=== PATIENT | male | born 1975 | race Caucasian/White ===

== ENCOUNTER 2019-06-28 03:14 | Inpatient (IN) | payer OTHER, SELFPAY ==
[2019-06-28 03:17] VITALS: BP 127/104; PULSE 123; RESP 18; TEMP 36.6; O2SAT 96; BMI 42.8
--- NOTE | 2019-06-28 03:23 | ED_ITS ---
Entered by Kala Wilson, acting as scribe for Calli Perez HPI - Anxiety General: Chief Complaint: Anxiety Stated Complaint: ams Time Seen by Provider: 06/28/19 03:17 Source: patient Mode of arrival: ambulatory History of Present Illness: HPI narrative: 44 y/o male presents to the ED with complaint of anxiety and ETOH intoxication. Pt states he is here because he does not want to harm anyone. Pt walked quite a distance to get here in an attempt to seek help and refuge . He states he feels very betrayed and has some uneasy thoughts about being around other people. Pt is a war and has some PTSD. Pt is very careful to not explicitly use the terms, suicidal or homicidal upon exam because he does not want to lose the ability to make his own decisions. He is interested in possibly going to the [facility] on a voluntary basis. MD complaint: anxiety and other (ETOH) Severity: moderate History of similar episodes: Yes Provoking factors: emotional stress and other (ETOH) Relieving factors: nothing Associated symptoms: Deny chest pain, chills, confusion, diaphoresis, fever(s), headache(s), malaise, nausea, palpitations, syncope or vomiting Review of Systems General: Reports: other (negative unless marked) Const: Denies: fever, chills, body aches, fatigue, malaise or diaphoresis Eyes: Denies: change in vision or blurry vision ENMT: Denies: throat pain, painful swallowing, hoarseness, ear pain, ear discharge, Change in hearing or nasal discharge Card: Denies: chest pain, palpitations, irregular heart rhythm, syncope, pre- syncope, shortness of breath on exertion or shortness of breath when lying down Resp: Denies: shortness of breath, productive cough, non-productive cough, wheezing, coughing up blood or chest congestion GI: Denies: abdominal pain, nausea, vomiting, vomiting blood, coffee grounds in vomit, diarrhea, constipation, cramping, blood in stool or black tarry stool : Denies: flank pain, difficulty urinating, painful urination, urinary frequency, urinary urgency, decreased urine ouput, urinary incontinence or blood in urine Musc: Denies: neck pain, back pain, extremity pain, extremity swelling, joint pain, joint swelling, joint warmth or joint stiffness Skin/Breast: Denies: rash, skin tenderness or yellow skin Neuro: Denies: headache, numbness in extremities, weakness in extremities, changes in sensation, lack of coordination, difficulty walking, dizziness, vertigo or confusion Endo: Denies: excessive thirst, tired all the time, cold intolerance, excessive sweating, flushing or hot flashes Keo/Lymph: Denies: easy bruising, easy bleeding, petechiae or enlarged lymph nodes All/Imm: Denies: hives, throat swelling, tongue swelling, facial swelling or acute wheezing PFSH ED PFSH: Social History Smoking and tobacco status: never smoked Physical Exam Const: ORIENTATION/CONSCIOUSNESS: Yes awake HENMT: COMMON NORMALS: normocephalic, head/scalp atraumatic, hearing grossly normal bilaterally, external ears normal, EAC's normal, external nose normal and moist oral mucous membranes HEAD & SCALP: normal to inspection, normocephalic and atraumatic FACE & SINUS: normal facial exam and face symmetric NOSE: external nose normal and nares normal EXTERNAL EAR: Yes external ears normal EXTERNAL AUDITORY CANAL: EAC's normal MOUTH: oral and palatal mucosa normal and tongue normal Eye: COMMON NORMALS: PERRL, EOMs intact bilaterally, conjunctivae normal and no scleral icterus GENERAL EYE: normal appearance of both eyes and normal light reflex CONJUNCTIVA: Yes conjunctivae normal SCLERA: sclerae normal CORNEA: Yes corneas normal PUPIL: Yes PERRL DIRECT OPHTHALMOSCOPY: Yes normal light reflex Neck/C-Spine: COMMON NORMALS: full ROM, no lymphadenopathy, supple, no menin geal signs and no JVD GENERAL: Yes normal visual inspection and Yes trachea midline CERVICAL SPINE: Yes cervical ROM normal Chest: COMMONS NORMALS: inspection of chest normal and palpation of chest normal Resp: COMMON NORMALS: normal respiratory effort, no retractions, no use of accessory muscles and clear to auscultation bilaterally EFFORT & INSPECTION: Yes able to speak in complete sentences AUSCULTATION: clear to auscultation bilaterally Cardio: COMMON NORMALS: no JVD, regular rate, regular rhythm, S1 normal heart sound, S2 normal heart sound, no gallops, no clicks, no murmurs and no rub JUGULAR VENOUS DISTENTION: no JVD RATE: regular rate RHYTHM: regular rhythm HEART SOUNDS: S1 normal and S2 normal GI: COMMON NORMALS: soft to palpation, non-tender, no hepatosplenomegaly and no masses INSPECTION: Yes normal to inspection PALPATION: Yes soft and Yes no hepatosplenomegaly : COMMON NORMALS: Yes no CVA tenderness BLADDER/KIDNEY EXAM: Yes no CVA tenderness Back/Pelvis: COMMON NORMALS: no CVA tenderness, thoracic and lumbar spine normal to inspection, no thoracic nor lumbar tenderness and thoraco-lumbar ROM normal Extremity: COMMON NORMALS: normal to inspection, full ROM, normal capillary refill, no joint enlargement, no clubbing, cyanosis or edema and no calf tenderness Neuro: COMMON NORMALS: CN's II-XII intact bilaterally, moves all extremities, no focal motor deficits and no sensory deficits noted MENINGEAL SIGNS: Yes no meningeal signs Psych: COMMON NORMALS: activity/motor behavior normal Skin: COMMON NORMALS: no rashes or lesions noted, skin turgor normal, no jaundice, no petechiae and no mottling GENERAL SKIN EXAM: no rashes or lesions noted and turgor normal Course Vital Signs: Vital signs: Vital Signs Temperature 97.9 F 06/28/19 03:17 Pulse Rate 115 H 06/28/19 04:53 Respiratory Rate 18 06/28/19 04:53 Blood Pressure 121/89 06/28/19 04:53 Pulse Oximetry 95 06/28/19 04:53 MDM - Anxiety MDM Narrative: Medical decision making narrative: Case reviewed with Dr. Wallace, he agrees accept the patient to the [facility]. The patient is received Zyprexa and Ativan with only minimal improvement but it is improvement. The patient is clinically stable with no sign of intoxication. He will go ahead and admit him to the [facility]. EKG Data^: EKG 1: Attestation: I personally reviewed and interpreted this EKG as follows: EKG interpretation date: 06/28/19 EKG interpretation time: 05:12 Interpretation: Sinus tachycardia 110 beats a minute, no acute ST or T wave changes. Lab Data: Labs: Lab Results 06/28/19 06/28/19 06/28/19 Range/Units 04:36 04:36 04:36 WBC 10.7 H (4.0-10.0) 10^3/ uL RBC 4.85 (4.1-5.3) 10^6/u L Hgb 14.8 (11.7-16.6) g/dL Hct 45.1 (42.0-52.0) % MCV 93.0 (80-94) fL MCH 30.5 (28.0-34.0) pg MCHC 32.8 (30.0-36.0) g/dL RDW 13.2 (12.1-15.1) % Plt Count 373 (130-400) 10^3/c mm MPV 8.9 (7.4-10.4) fL Neut % (Auto) 58.9 % Lymph % (Auto) 28.3 % Taliaferro % (Auto) 9.3 % Eos % (Auto) 2.3 % Baso % (Auto) 0.7 % Neut # (Auto) 6.3 (1.8-7.7) 10^3/u L Lymph # (Auto) 3.0 (0.8-4.8) 10^3/u L Taliaferro # (Auto) 1.0 H (0.2-0.9) 10^3/u L Eos # (Auto) 0.3 (0.0-0.8) 10^3/u L Baso # (Auto) 0.1 (0.0-0.1) 10^3/u L Nucleated RBC % (a uto) 0 % Nucleated RBCs # 0.0 /100WBC Sodium 138 (136-145) mmol/L Potassium 3.8 (3.5-5.1) mmol/L Chloride 100 (98-107) mmol/L Carbon Dioxide 21 L (22-29) mmol/L Anion Gap 20.8 H (5-19) BUN 20 (6-20) mg/dL Creatinine 1.2 (0.7-1.2) mg/dL GFR Calculation 66.1 L (90-130) mL/min Glucose 115 (65-115) mg/dL Calcium 9.5 (8.5-10.5) mg/dL Total Bilirubin 0.2 (0.15-1.2) mg/dL AST 33 (0-40) U/L ALT 38 (0-41) U/L Alkaline Phosphata se 91 (40-130) IU/L Total Protein 8.3 (6.6-8.7) g/dL Albumin 3.9 (3.5-5.2) g/dL Globulin 4.4 (1.3-4.6) g/dL TSH 4.03 (0.27-4.20) uIU/ mL Salicylates < 0.3 L (3-10) mg/dL Acetaminophen < 5.0 L (10-30) ug/mL Phenytoin 1.2 L (10-20) ug/mL Valproic Acid < 2.8 L (50-100) mcg/mL Carbamazepine < 2.0 L (4.0-12.0) ug/mL Realitos < 0.1 L (0.6-1.2) mmol/L Ethyl Alcohol 221 H (0-10) mg/dL Discharge Plan Discharge Patient Disposition: Admitted As Inpatient Admit Provider: Pramod Wallace Clinical Impression: Suicidal ideations, Homicidal ideations Condition: Stable Referrals: Cristiana Banks FNP [Family Provider] - Coding Level of Care Code ED Machine Coremaker for Chg Fwd Exam Comprehensive The documentation recorded by the Steve reeves Ashley, accurately reflects the service I personally performed and the decisions made by Chris squires Eli N Jun 28, 2019 03:14
--- NOTE | 2019-06-28 04:01 | PC.NURSE ---
Patient arrived to emergency department for vague complaints of SI/HI. Patient was brought back to room 8 patient made multiple vague statements concerning his safety. When asked about harming himself or others patient made air quotes stating No , and stated Honestly, if I was I would not tell you . RN documented triage suicide scale as not a harm to self due to patient not specifically stating yes or No . When Dr. Perez, entered the room to speak with the patient, he became agitated, and began sweating. Patient voiced If you have more important things to do, go do them, I'm fine . Provider explained that he was here to see him and listen to his needs. Provider explained to patient about voluntary and involuntary. Patient explained to provider, that once he states he is a harm to himself, he loses all his rights and voiced with air quotes No, I'm not homicidal or suicidal , but again voiced he would not tell nursing staff. Provider moved towards patient to assess his heart and lungs, patient became very fidgety, sweating profusely, stating I have personal space issues . RN stayed in room after provider left and spoke with patient, patient began crying voicing he was a burden on his family, and that he thought they were tired of dealing with him and his issues. Patient asked nurse what time it was, nurse answered. He became more upset stating they don't care about me, no one has called . RN explained to patient that maybe they were sleeping and did not know he was gone. Patient asked for something to help his anxiety and then he would decide if he was going to stay or go home. RN pulled mediation and was headed back to the patient's room. Patient met RN in the hallway, with his jacket on and the reeves over his eyes. He stated If you guys are busy, take care of the other patient's, I'm going to go. RN explained that he was just as important as the other patient's in the EAR and that he was not being a bother to any of the nursing staff. Patient relaxed and headed back into the room. He sat down on the bed, and asked what medication I had for him. RN explained that provider had ordered a medication called Zyprexa IM and that medication would help calm him down. Patient voiced If I take this medication, do I have to stay here for a long time afterwards, or can I just get the medication and go home . RN explained that patient would need to stay in the ER for four hours after medication to monitor for side effects and how patient tolerates medication. Patient voiced Then I do not want the medication . Another nurse over heard discussion and brought in a AMA form. Patient signed the AMA form, upon signing the paper, he stated If I sign this does this protect the hospital from getting inarguable for me leaving. Patient then stated I have lots of opportunities on the way home. After patient left ER, and provider was notified. Raudel DENNIS notified and RN explained the situtation to PD and potential risk of harming himself or others. Upon leaving facility he explained there are multiple opportunities to harm myself on the way. RN notified provider concerning patient elopement, Provider instructed RN to call Raudel still PD.
--- NOTE | 2019-06-28 04:08 | PC.NURSE ---
Patient was being triage by CARI Reese the patient continued to make vague complaints of SI/HI. Patient reports that he is not SI/HI but then states that he has feelings of hurting others and his self but does not want to. Patient asked during triage for something to help calm him down. This RN went to get the physician to ask for medication for the patient. This RN got verbal orders from the physician. After getting the medication the patient decided he did not want the medication. Patient then decides he wants to leave. Patient signed the AMA paperwork then stated does this protect you guys if I was to do something on my way home? Patient then walks out and reports there is a lot of opportunity on the way.
[2019-06-28] MEDS: OLANZapine 10 mg VIAL 5 MG IM (04:41)
[2019-06-28] MEDS: LORazepam 2 mg/mL INJ 1 mL (04:42)
[2019-06-28 04:44] LABS: Basophils # 0.1 10^3/uL (0.0-0.1); Basophils % 0.7 %; Eosinophils # 0.3 10^3/uL (0.0-0.8); Eosinophils % 2.3 %; Hematocrit 45.1 % (42.0-52.0); Hemoglobin 14.8 g/dL (11.7-16.6); Lymphocytes % 28.3 %; Mean Corpuscular HGB Conc 32.8 g/dL (30.0-36.0); Mean Corpuscular Hemoglobin 30.5 pg (28.0-34.0); Mean Platelet Volume 8.9 fL (7.4-10.4); Monocytes % 9.3 %; Neutrophils # 6.3 10^3/uL (1.8-7.7); Neutrophils % 58.9 %; Nucleated Red Blood Cells % 0 %; Platelet Count 373 10^3/cmm (130-400); Red Blood Count 4.85 10^6/uL (4.1-5.3); Red Cell Distribution Width 13.2 % (12.1-15.1); White Blood Count 10.7 10^3/uL (4.0-10.0)
[2019-06-28 04:53] VITALS: BP 121/89; PULSE 115; RESP 18; O2SAT 95
[2019-06-28 05:05] LABS: Lithium < 0.1 mmol/L (0.6-1.2); Phenytoin Dilantin 1.2 ug/mL (10-20); Valproic Acid Level < 2.8 mcg/mL (50-100)
[2019-06-28 05:06] LABS: Carbamazepine Tegretol < 2.0 ug/mL (4.0-12.0)
[2019-06-28 05:14] LABS: Alanine Aminotransferase 38 U/L (0-41); Albumin Level 3.9 g/dL (3.5-5.2); Alcohol Level 221 mg/dL (0-10); Alkaline Phosphatase 91 IU/L (40-130); Anion Gap 20.8 (5-19); Aspartate Amino Transferase 33 U/L (0-40); Blood Urea Nitrogen 20 mg/dL (6-20); Calcium 9.5 mg/dL (8.5-10.5); Carbon Dioxide 21 mmol/L (22-29); Chloride 100 mmol/L (98-107); Globulin 4.4 g/dL (1.3-4.6); Glomerular Filtration Rate 66.1 mL/min (90-130); Glucose 115 mg/dL (65-115); Potassium 3.8 mmol/L (3.5-5.1); Sodium 138 mmol/L (136-145); Thyroid Stimulating Hormone 4.03 uIU/mL (0.27-4.20); Total Bilirubin 0.2 mg/dL (0.15-1.2); Total Protein 8.3 g/dL (6.6-8.7)
[2019-06-28 05:15] LABS: Acetaminophen < 5.0 ug/mL (10-30); Salicylate < 0.3 mg/dL (3-10)
--- NOTE | 2019-06-28 05:20 | PC.NURSE ---
Introduced self to patient and initiated vital signs. Patient presents A&O x 4. NAD, ABCs intact, MAEW and agreeable to treatment. Respirations are even and unlabored. Pt denies any vision disturbances or lightheadedness. Bed left in lowest position in semi-fowlers with side rails up.Reassured patient of needs and will continue to monitor.
[2019-06-28 05:28] LABS: Amphetamines Screen Urine Negative (Negative); Barbiturates Screen Urine Negative (Negative); Benzodiazepines Screen Urine Negative (Negative); Cocaine Screen Urine Negative (Negative); Opiate Screen Urine Negative (Negative); PCP Screen Urine Negative (Negative); THC Screen Urine Negative (Negative)
--- NOTE | 2019-06-28 05:35 | PC.NURSE ---
Pt changed into gown (front and back) due to ER not having large enough blue scrubs.
[2019-06-28 05:38] LABS: Urine Appearance Clear (CLEAR); Urine Color Yellow (Yellow)
[2019-06-28 05:39] LABS: Add Urine Microscopic? YES; Bilirubin Urine Neg (NEGATIVE); Blood Urine 3+ (Negative); Glucose Urine UA Norm (Normal); Ketones Urine Negative (Negative); Leukocyte Esterase Urine Negative (Negative); Nitrate Urine Negative (Negative); Protein Urine Neg (Negative); Urobilinogen Urine Norm (Negative); pH Urine 5 (5-7)
[2019-06-28 05:40] LABS: RBC Urine 15-25 /hpf (0-2); Squamous Epithelial Cell Urine 0-4 (0-5); WBC Urine 0-4 /hpf (0-5)
[2019-06-28 05:41] LABS: Add Urine Culture? Yes; Bacteria Urine TRACE; Hyaline Casts Urine 0-4; Mucus Urine TRACE
[2019-06-28 06:00] VITALS: BP 91/42; PULSE 109; RESP 17; TEMP 36.6; O2SAT 94
--- NOTE | 2019-06-28 08:23 | P.HP_ITS ---
Providers/Chief Complaint Admitting Physician: Pramod Wallace MD Chief Complaint: ams HPI [facility] History of Present Illness Chief complaint: I got my feelings hurt. I don't really know why I came here. I don't how this is Supposed to help me. History of present illness:Roderick Costello is a 44 year old male Who does not feel that he has a mental health problem. He presented to the emergency room after an episode at home that his feelings hurt. He did not know where to go. He came to the hospital. He made some vague suicidal statements. He is somewhat offended that they took him seriously and that he is now in a psychiatric unit. He is irritated that they gave him medication and now tired. He needs to be here. He does not feel he needs to have psychiatric care. Roderick is suffering from multiple different mental health issues. To begin with, he reports that he is drinking 2 gallons of vodka per week.He is prescribed [facility]ote at the [facility] for his tendency to be explosive and angry. However he does not take the Depakote because of the fear he has that the Depakote will harm his liver in combination with alcohol. He sees that the alcohol drinking as a problem but not to the extent that he would be willing to participate in a sobriety program. He cannot remember when he was last sober for more than a week.He presented to the emergency room with a blood alcohol level =221. He is not reporting any signs or symptoms of alcohol withdrawal today.He denies a history of seizures, DTs, or alcohol withdrawal. He denies that he is depressed. He enjoys playing with his grandchildren. However he also reports that he is persistently dysphoric area he has difficulty sleeping though he does sleep with a CPAP. He is drinking 2 gallons of vodka per week. He denies suicidal or homicidal ideation but he definitely did make multiple statements according affidavits in that direction last night. He is sad over the state of his marital relationship. He is sad for a great number of reasons. He feels hopeless and overwhelmed and does not feel that he can make any significant changes in his life. But again, he states that he is not depressed. He denies the presence of auditory or visual hallucinations. He is given Depakote by the [facility] for tendency to be explosive. He has never had a seizure. Then again, he doesn't take that medication. Laboratory Tests 06/28/19 06/28/19 04:36 04:36 Urine Opiates Screen Negative Ur Barbiturates Screen Negative Ur Phencyclidine Scrn Negative Ur Amphetamines Screen Negative U Benzodiazepines Scrn Negative Urine Cocaine Screen Negative U Marijuana (THC) Screen Negative Ethyl Alcohol 221 H ER physician note: HPI narrative: 44 y/o male presents to the ED with complaint of anxiety and ETOH intoxication. Pt states he is here because he does not want to harm anyone. Pt walked quite a distance to get here in an attempt to seek help and refuge . He states he feels very betrayed and has some uneasy thoughts about being around other people. Pt is a war and has some PTSD. Pt is very careful to not explicitly use the terms, suicidal or homicidal upon exam be cause he does not want to lose the ability to make his own decisions. He is interested in possibly going to the [facility] on a voluntary basis. Mental health history: He denies any history of mental health treatment. He denies any history of being admitted to the psychiatric unit. However he did present to the emergency room and an almost identical circumstances in 2017. He describes that as a Fugue state episode. Social history:Patient probably states that he is a of the [place] war. He has been for 34 years. He lives in a home with his 23-year-old son and 3 grandchildren he and his are charged with being the primary caretakers of the grandchildren. All the relationship with her son is good, though lack of personal time and time to spend together is a significant problem. He spends his time watching TV, taking care of the children, and playing [employer]. He says that these are enjoyable but does so without enthusiasm. Legal history:There is no history of felony arrests or convictions in the [place] public record. Past medical history: Mental Status Exam: The patient is a large obese man appearing much older than his stated age. He has a long blond braided croft that is well tended. Eye contact is fleeting. He is believed to be a reliable source of information as assessed by the internal consistency of his information and its consistency with that in the chart. Appearance: hygiene is fair; no gross neurological deficits., gait is u nremarkable; AIMS=0 Speech: Speech is of normal rate and rhythm and easily understood. Thought processes: Thought processes are abstract. Judgment is adequate for safety. Associations: intact Psychotic processes: There is no indication of guarding or paranoia. There is no attention to the internal stimuli. Auditory and visual hallucinations are denied. Judgment: Insight is fair. Problem solving skills are adequate for safety. Orientation: The patient is oriented to person, place time and situation. Memory: no deficits noted in immediate, intermediate, or remote spheres. Attention: The patient is alert and interpersonally engaged. Language: Verbalizations are coherent. Fund of knowledge: Fund of knowledge is adequate. Affect/Mood: Affect is consistent with a depressed mood. He denied suicidal ideation Affective range Constricted Psychosis: perception unimpaired except through cognitive distortion; reality testing intact. Diagnoses: Major depression?single episode, severe, without psychotic features Alcohol abuse disorder Alcohol inebriation?resolved Assessment: The patient is admitted to the psychiatric unit under a 96 hour involuntary commitment. At this point, he does not appear to be in imminent risk to self or others but will continue observation. He does appear to be afflicted with clinical depression and severe alcohol abuse. We discussed multiple possible interventions that could be initiated and follow through on discharge. However he Is reluctant to engage in any of those. Treatment plan: Due to the psychiatric conditions and treatment listed in the Assessment and Plan - the patient requires continued hospitalization. Will provide a safe and therapeutic environment for patient.. Will continue inpatient treatment to allow for medication adjustment and monitoring. Will continue q15 min safety checks. The patient is admitted to the psychiatric unit under a 96 hour involuntary commitment. At this point, he does not appear to be in imminent risk to self or others but will continue observation. He does appear to be afflicted with cl inical depression and severe alcohol abuse. We discussed multiple possible interventions that could be initiated and follow through on discharge. However he Is reluctant to engage in any of those.PLAN: Will not restart Depakote as he is not going to take it anyway. Will replace lisinopril with atenolol 25 mg daily that may assist with explosive outbursts and hypertension. Will continue current medications and monitor for medication side effects. Monitor patient's mood, sleep, appetite, and behavior closely. Encourage patient to participate in individual and group therapeutic sessions on the smith. Estimated length of stay 5 days The expected benefits and potential side effects of patient's psychiatric medications were discussed with the patient. The patient understands and consents to treatment.CRITERIA FOR DISCHARGE: stable on medications and no longer an im Meds NPU Home Medications Medication Instructions Recorded Confirmed Type divalproex [Depakote] 250 mg PO BID 06/28/19 06/28/19 History lisinopril 10 mg PO DAILY 06/28/19 06/28/19 History Allergies Allergy/AdvReac Type Severity Reaction Status Date / Time haloperidol [From Haldol] Allergy Intermediate ADR-Seizure Verified 06/28/19 03:25 antibotics Allergy Intermediate ALGY-Hives Uncoded 06/28/19 03:25 PFSH N[facility] PFSH: Social History Smoking and tobacco status: never smoked Vitals/I&O/Wt Last Vital Signs Temp 97.9 F 06/28/19 06:00 Pulse 109 H 06/28/19 06:00 Resp 17 06/28/19 06:00 BP 91/42 06/28/19 06:00 Pulse Ox 94 06/28/19 06:00 Weight last 48 hrs Weight 147.418 kg Data N[facility] : 06/28/19 04:36 06/28/19 04:36 Involuntary Hold Information 96 Hour Hold: 96 Hour Involuntary Admission: Yes 96 Hour Hold Ending Date: 07/03/19 96 Hour Hold Ending Time: 00:00 Attestations [facility] Medical Necessity Statement*: Patient will remain in the hospital 24 hours while we assess his imminent risk to self or others. Coding Level of Care Code Acute Electric Organ Checker for Tevin Roberts
[2019-06-28] MEDS: atenolol 50 mg Tablet 25 MG PO (10:12)
--- NOTE | 2019-06-28 13:56 | PC.NURSE ---
CONTACT INFO CAN BE REACHED AT [phone]
[2019-06-28 13:59] VITALS: BP 109/84; PULSE 98; RESP 19; TEMP 36.6; O2SAT 96
[2019-06-28 20:39] VITALS: PULSE 66; RESP 16; O2SAT 96
[2019-06-28 21:43] VITALS: BP 149/79; PULSE 64; RESP 17; TEMP 36.9; O2SAT 95
[2019-06-29] MEDS: hyDROXYzine 25 mg Capsule 50 MG PO (02:30)
--- NOTE | 2019-06-29 02:31 | PC.NURSE ---
vistaril 50 mg po given for anxiety d/t not sleeping. says CPAP NOT WORKING TO HELP HIM REST.
[2019-06-29 06:00] VITALS: BP 145/80; PULSE 56; RESP 17; TEMP 36.6; O2SAT 95
[2019-06-29] MEDS: atenolol 50 mg Tablet 25 MG PO (08:24)
--- NOTE | 2019-06-29 13:04 | PM.DCS ---
Discharge Providers Date of Admission: 06/28/19 05:13 Date of Discharge: June 29, 2019 Attending Provider at Admission: Pramod Wallace MD Attending Provider at Discharge: Pramod Wallace MD Reason for Visit Reason for Visit: Reason For Visit: [facility] Hospital Course Discharge Summary: Chief complaint: I got my feelings hurt. I don't really know why I came here. I don't how this is Supposed to help me. History of present illness:Roderick Costello is a 44 year old male Who does not feel that he has a mental health problem. He presented to the emergency room after an episode at home that his feelings hurt. He did not know where to go. He came to the hospital. He made some vague suicidal statements. He is somewhat offended that they took him seriously and that he is now in a psychiatric unit. He is irritated that they gave him medication and now tired. He needs to be here. He does not feel he needs to have psychiatric care. Roderick is suffering from multiple different mental health issues. To begin with, he reports that he is drinking 2 gallons of vodka per week.He is prescribed Depakote at the [facility] for his tendency to be explosive and angry. However he does not take the Depakote because of the fear he has that the Depakote will harm his liver in combination with alcohol. He sees that the alcohol drinking as a problem but not to the extent that he would be willing to participate in a sobriety program. He cannot remember when he was last sober for more than a week.He presented to the emergency room with a blood alcohol level =221. He is not reporting any signs or symptoms of alcohol withdrawal today.He denies a history of seizures, DTs, or alcohol withdrawal. He denies that he is depressed. He enjoys playing with his grandchildren. However he also reports that he is persistently dysphoric area he has difficulty sleeping though he does sleep with a CPAP. He is drinking 2 gallons of vodka per week. He denies suicidal or homicidal ideation but he definitely did make multiple statements according affidavits in that direction last night. He is sad over the state of his marital relationship. He is sad for a great number of reasons. He feels hopeless and overwhelmed and does not feel that he can make any significant changes in his life. But again, he states that he is not depressed. He denies the presence of auditory or visual hallucinations. [facility] be [facility]. He has never had a seizure. Then again, he doesn't take that medication. Laboratory Tests 06/28/19 06/28/19 04:36 04:36 Urine Opiates Screen Negative Ur Barbiturates Screen Negative Ur Phencyclidine Scrn Negative Ur Amphetamines Screen Negative U Benzodiazepines Scrn Negative Urine Cocaine Screen Negative U Marijuana (THC) Screen Negative Ethyl Alcohol 221 H ER physician note: HPI narrative: 44 y/o male presents to the ED with complaint of anxiety and ETOH intoxication. Pt states he is here because he does not want to harm anyone. Pt walked quite a distance to get here in an attempt to seek help and refuge . He states he feels very betrayed and has some uneasy thoughts about being around other people. Pt is a war and has some PTSD. Pt is very careful to not explicitly use the terms, suicidal or homicidal upon exam because he does not want to lose the ability to make his own decisions. He is interested in possibly going to the [facility] on a voluntary basis. Mental health history: He denies any history of mental health treatment. He denies any history of being admitted to the psychiatric unit. However he did present to the emergency room and an almost identical circumstances in 2017. He describes that as a Fugue state episode. Social history:Patient probably states that he is a of the [place] war. He has been for 34 years. He lives in a home with his 23-year-old son and 3 grandchildren he and his are charged with being the primary caretakers of the grandchildren. All the relationship with her son is good, though lack of personal time and time to spend together is a significant problem. He spends his time watching TV, taking care of the children, and playing [employer]. He says that these are enjoyable but does so without enthusiasm. Legal history:There is no history of felony arrests or convictions in the [place] public recorrd Diagnoses: Major depression?single episode, severe, without psychotic features Alcohol abuse disorder Alcohol inebriation?resolved Assessment: The patient is admitted to the psychiatric unit under a 96 hour involuntary commitment. At this point, he does not appear to be in imminent risk to self or others but will continue observation. He does appear to be afflicted with clinical depression and severe alcohol abuse. We discussed multiple possible interventions that could be initiated and follow through on discharge. However he Is reluctant to engage in any of those. Treatment plan: Due to the psychiatric conditions and treatment listed in the Assessment and Plan - the patient requires continued hospitalization. Will provide a safe and therapeutic environment for patient.. Will continue inpatient treatment to allow for medication adjustment and monitoring. Will continue q15 min safety checks. The patient is admitted to the psychiatric unit under a 96 hour involuntary commitment. At this point, he does not appear to be in imminent risk to self or others but will continue observation. He does appear to be afflicted with clinical depression and severe alcohol abuse. We discussed multiple possible interventions that could be initiated and follow through on discharge. However he Is reluctant to engage in any of those.PLAN: Will not restart Depakote as he is not going to take it anyway. Will replace lisinopril with atenolol 25 mg daily that may assist with explosive outbursts and hypertension. HD#2: Reasons for admission resolved. HE was requesting discharge. He tolerated atenolol without side effects. Bloo pressure was within acceptable limits. HE was given education and reference materials on local outpatient alcohol treatment programs. Neither he nor his were willing to go to inpatient. Neither seemed to think his alcohol intake was that muchof a problem. Discharge Mental Status Exam: Appearance: hygiene is good; no gross neurological deficits., gait is unremarkable; AIMS=0 Speech: Speech is of normal rate and rhythm and easily understood. Thought processes: Thought processes are abstract. Judgment is adequate for safety. Associations: intact Psychotic processes: There is no indication of guarding or paranoia. There is no attention to the internal stimuli. Auditory and visual hallucinations are denied. Judgment: Insight is fair. Problem solving skills are adequate for safety. Orientation: The patient is oriented to person, place time and situation. Memory: no deficits noted in immediate, intermediate, or remote spheres. Attention: The patient is alert and interpersonally engaged. Language: Verbalizations are coherent. Fund of knowledge: Fund of knowledge is adequate. Affect/Mood: Affect is consistent with a euthymic mood. denied suicidal ideation Affective range is appropriate. Psychosis: perception unimpaired except through cognitive distortion; reality testing intact. Discharge Data Data Completed and Pending: Pending at discharge Category Date Time Status Urine Culture Sta t Lab 06/28/19 04:36 Received Vitals: Last Vital Signs Temp 97.8 F 06/29/19 06:00 Pulse 56 L 06/29/19 06:00 Resp 17 06/29/19 06:00 BP 145/80 06/29/19 06:00 Pulse Ox 95 06/29/19 06:00 Discharge Plan Discharge Patient Disposition: Home, Self-Care Condition: Stable Prescriptions: New trazodone 50 mg Tablet 50 mg PO BEDTIME PRN (Reason: Sleep) Qty: 20 RF: 3 atenolol 50 mg Tablet 25 mg PO DAILY Qty: 30 RF: 3 Continued lisinopril 10 mg Tablet 10 mg PO DAILY RF: 0 Discontinued divalproex [Depakote] 250 mg Tablet,Delayed Release (Dr/Ec) 250 mg PO BID RF: 0 Discharge Orders: Discharge Order (Routine); Ordered 06/29/19 Ordered By: Pramod Wallace Referrals: Cristiana Banks FNP [Family Provider] - Discharge Diet: Usual diet Discharge Activity: Increase activity as tolerated Discharge Attestations Time Spent in Discharge Care*: greater than 30 min Quality Metrics Clinical Quality Measures During this hospital stay, did patient experience: None Coding Level of Care Code Acute Senior Information Security Consultant for Tevin Roberts
[2019-06-29 13:46] VITALS: BP 145/80; PULSE 56; RESP 17; TEMP 36.6; O2SAT 95
== END 2019-06-29 14:05 | disposition home or self-care (01) | DRG 897 ==
LOC: ER 05:11 → NP 05:19
PROVIDERS: Admitting Provider Psychiatry & Neurology Psychiatry; Emergency Provider Emergency Medicine; Family Provider Nurse Practitioner; Visit Provider Psychiatry & Neurology Psychiatry
DX: F10.229 Alcohol dependence with intoxication, unspecified (principal); F32.2 Major depressive disorder, single episode, severe without psychotic features; Y90.7 Blood alcohol level of 200-239 mg/100 ml
CPT/HCPCS: 12345; 80053; 80156; 80164; 80178; 80185; 80307; 81001; 84443; 85025; 87086; 96372; 96375; 99282; J2060; J3490

== ENCOUNTER → 2021-09-18 08:04 | Outpatient (BNVA) | payer OTHER, SELFPAY | PROVIDERS: Family Provider Nurse Practitioner; PCP Urology; Referring Provider Nurse Practitioner; Visit Provider Nurse Practitioner Family | DX: N41.9 Inflammatory disease of prostate, unspecified (principal); R30.0 Dysuria | CPT/HCPCS: 51741; 51798; 81003; 87086; 99203 ==

== ENCOUNTER → 2021-10-19 13:10 | Outpatient (BNVA) | payer SELFPAY | PROVIDERS: Family Provider Nurse Practitioner; PCP Urology; Visit Provider Registered Nurse Neonatal Intensive Care | DX: J02.0 Streptococcal pharyngitis (principal) | CPT/HCPCS: 87880 ==

== ENCOUNTER 2021-10-27 12:12 | Inpatient (IN) | payer MEDICARE, OTHER, SELFPAY ==
[2021-10-27 12:31] VITALS: BMI 47.0
--- NOTE | 2021-10-27 12:42 | ED.C_ITS ---
HPI - Psych General: Chief Complaint: Psychiatric Symptoms Stated Complaint: MHE Time Seen by Provider: 10/27/21 12:19 PFSH ED PFSH: Medical History Dysuria Family History Mother , at age 53 Lung disease Brother No problems noted. Social History Smoking and tobacco status: former smoker Alcohol intake: current Alcohol intake frequency: 0-2 Drinks per Day Marital status: service: Yes Current occupational status: retired History of recent travel: No Discharge Plan Discharge Condition: Stable Prescriptions: No Action multivitamin [Daily Multi-Vitamin] Tablet 1 tab PO DAILY 0RF sertraline 100 mg tablet 100 mg PO DAILY 0RF amlodipine 5 mg tablet 5 mg PO DAILY 0RF potassium 75 mg tablet PO DAILY 0RF hydrochlorothiazide 25 mg tablet 25 mg PO DAILY 0RF cholecalciferol (vitamin D3) 75 mcg (3,000 unit) tablet 75 mcg PO DAILY 0RF amoxicillin 500 mg tablet 500 mg PO BID 10 Days Qty: 20 0RF lisinopril 10 mg Tablet 10 mg PO DAILY 0RF trazodone 50 mg Tablet 50 mg PO BEDTIME PRN (Reason: Sleep) Qty: 20 3RF atenolol 50 mg Tablet 25 mg PO DAILY Qty: 30 3RF Coding Level of Care Code ED Practical Nursing Teacher for Tevin Roberst
--- NOTE | 2021-10-27 12:43 | W.ED.GENADLT ---
HPI - General Adult General: Chief complaint: Psychiatric Symptoms Stated complaint: MHE Time Seen by Provider: 10/27/21 12:19 History of Present Illness: HPI: [46]yo patient w/ hx of depression and emergency room passive suicidal ideation and fear. Patient tells me that he feels hopeless and he feels like he is hopeless and could later today. He does not have any active plan. On arrival, the patient is AAOx3 and cooperative with my evaluation. No focal complaints of chest pain, shortness of breath, palpitations, N/V, focal GI/ complaints. Currently denies HI. No complaints of hallucinations. Onset: acute Duration: ongoing Location: home Severity: severe Associated symptoms: Deny chest pain, dyspnea, nausea, rash, palpitations or vomiting Review of Systems Const: Denies: fever(s) or chills Eyes: Denies: change in vision ENMT: Denies: mouth pain Card: Denies: chest pain or palpitations Resp: Denies: dyspnea or non-productive cough GI: Denies: abdominal pain, nausea, vomiting or diarrhea : Denies: dysuria Musc: Denies: extremity pain Skin/Breast: Denies: rash or new lesions Neuro: Denies: weakness in extremities Psych: Reports: hopelessness and suicidal ideation Keo/Lymph: Denies: easy bruising PFSH ED PFSH: Medical History Dysuria Family History Mother , at age 53 Lung disease Brother No problems noted. Social History Smoking and tobacco status: former smoker Alcohol intake: current Alcohol intake frequency: 0-2 Drinks per Day Marital status: service: Yes Current occupational status: retired History of recent travel: No Physical Exam Const: COMMON NORMALS: alert HENMT: COMMON NORMALS: atraumatic HEAD & SCALP: atraumatic MOUTH: moist mucous membranes not abnormal Eye: COMMON NORMALS: EOMs intact bilaterally and conjunctivae normal CONJUNCTIVA: Yes conjunctivae normal Neck/C-Spine: COMMON NORMALS: full ROM and supple Resp: COMMON NORMALS: normal respiratory effort and clear to auscultation bilaterally AUSCULTATION: clear to auscultation bilaterally Cardio: COMMON NORMALS: regular rate RATE: regular rate GI: COMMON NORMALS: Soft to palpation and non-tender PALPATION: Yes Soft to palpation Extremity: COMMON NORMALS: full ROM Neuro: SENSORIUM/ORIENTATION: Yes alert MOTOR EXAM: No Abnormal motor strength present and Other motor observations present (no focal motor deficits) Psych: COMMON NORMALS: speech normal SPEECH: Yes normal speech MOOD & AFFECT: Yes depressed mood, Yes sad and Yes fearful Course Vital Signs: Vital signs: Vital Signs Temperature 98.8 F 10/27/21 12:51 Pulse Rate 93 10/27/21 12:51 Respiratory Rate 18 10/27/21 12:51 Blood Pressure 189/119 10/27/21 12:51 Pulse Oximetry 93 10/27/21 12:51 MDM - General Adult Medical Decision Making [46]yo patient w/ hx of depression presenting for hopelessness and thoughts of . HDS, exam within normal limit Thoughts are linear and organized, and the patient has no AH/VH, or HI. Clinically the patient displays no overt toxidrome; they are well appearing, with low suspicion for toxic ingestion given history and exam. Symptoms unlikely 2/2 anemia, hypothyroidism, infection, or ICH. Workup: CBC, CMP, Lipase, salicylate/tylenol, UDS Lab findings: wnl [2:30pm] On reassessment, labs and workup wnl. Patient is hemodynamically stable with no acute medical complaints. Case discussed with psychiatric provider Dr. Sher at [facility] psych inpatient with recommendation for admission Disposition: Psych Lab Data : 10/27/21 13:00 10/27/21 13:00 Laboratory Results WBC 14.4 10^3/uL (4.0-10.0) H 10/27/21 13:00 RBC 4.93 10^6/uL (4.1-5.3) 10/27/21 13:00 Hgb 15.2 g/dL (11.7-16.6) 10/27/21 13:00 Hct 43.6 % (42.0-52.0) 10/27/21 13:00 MCV 88.4 fl (80-94) 10/27/21 13:00 MCH 30.8 pg (28.0-34.0) 10/27/21 13:00 MCHC 34.9 g/dL (30.0-36.0) 10/27/21 13:00 RDW 13.9 % (12.1-15.1) 10/27/21 13:00 Plt Count 418 10^3/cmm (130-400) H 10/27/21 13:00 MPV 8.7 fL (7.4-10.4) 10/27/21 13:00 Neut % (Auto) 57.9 % 10/27/21 13:00 Lymph % (Auto) 26.9 % 10/27/21 13:00 Foard % (Auto) 9.2 % 10/27/21 13:00 Eos % (Auto) 1.4 % 10/27/21 13:00 Baso % (Auto) 1.0 % 10/27/21 13:00 Neut # (Auto) 8.33 10^3/uL (1.8-7.7) H 10/27/21 13:00 Lymph # (Auto) 3.9 10^3/uL (0.8-4.8) 10/27/21 13:00 Foard # (Auto) 1.3 10^3/uL (0.2-0.9) H 10/27/21 13:00 Eos # (Auto) 0.2 10^3/uL (0.0-0.8) 10/27/21 13:00 Baso # (Auto) 0.1 10^3/uL (0.0-0.1) 10/27/21 13:00 Nucleated RBC % (auto) 0 % 10/27/21 13:00 Nucleated RBCs # 0.0 /100WBC 10/27/21 13:00 Sodium 140 mmol/L (136-145) 10/27/21 13:00 Potassium 3.4 mmol/L (3.5-5.1) L 10/27/21 13:00 Chloride 100 mmol/L (98-107) 10/27/21 13:00 Carbon Dioxide 23 mmol/L (22-29) 10/27/21 13:00 Anion Gap 20.4 (5-19) H 10/27/21 13:00 BUN 7 mg/dL (6-20) 10/27/21 13:00 Creatinine 0.6 mg/dL (0.7-1.2) L 10/27/21 13:00 GFR Calculation 145.7 mL/min (90-130) H 10/27/21 13:00 Glucose 108 mg/dL (65-115) 10/27/21 13:00 Calculated Osmolality 289 mOsm/kg (285-295) 10/27/21 13:00 Calcium 9.1 mg/dL (8.5-10.5) 10/27/21 13:00 Total Bilirubin 0.2 mg/dL (0.15-1.2) 10/27/21 13:00 AST 59 U/L (0-40) H 10/27/21 13:00 ALT 65 U/L (0-41) H 10/27/21 13:00 Alkaline Phosphatase 133 IU/L (40-130) H 10/27/21 13:00 Total Protein 8.4 g/dL (6.6-8.7) 10/27/21 13:00 Albumin 3.9 g/dL (3.5-5.2) 10/27/21 13:00 Globulin 4.5 g/dL (1.3-4.6) 10/27/21 13:00 Lipase 14 U/L (13-60) 10/27/21 13:00 Salicylates < 0.3 mg/dL (3-10) L 10/27/21 13:00 Acetaminophen < 5.0 ug/mL (10-30) L 10/27/21 13:00 Discharge Plan Discharge Condition: Stable Prescriptions: No Action multivitamin [Daily Multi-Vitamin] Tablet 1 tab PO DAILY 0RF sertraline 100 mg tablet 100 mg PO DAILY 0RF amlodipine 5 mg tablet 5 mg PO DAILY 0RF potassium 75 mg tablet PO DAILY 0RF hydrochlorothiazide 25 mg tablet 25 mg PO DAILY 0RF cholecalciferol (vitamin D3) 75 mcg (3,000 unit) tablet 75 mcg PO DAILY 0RF amoxicillin 500 mg tablet 500 mg PO BID 10 Days Qty: 20 0RF lisinopril 10 mg Tablet 10 mg PO DAILY 0RF trazodone 50 mg Tablet 50 mg PO BEDTIME PRN (Reason: Sleep) Qty: 20 3RF atenolol 50 mg Tablet 25 mg PO DAILY Qty: 30 3RF Coding Level of Care Code ED Suture Polisher for Chg Fwd Exam Comprehensive
[2021-10-27 12:51] VITALS: BP 189/119; PULSE 93; RESP 18; TEMP 37.1; O2SAT 93
[2021-10-27 13:07] LABS: Basophils # 0.1 10^3/uL (0.0-0.1); Eosinophils # 0.2 10^3/uL (0.0-0.8); Eosinophils % 1.4 %; Hematocrit 43.6 % (42.0-52.0); Hemoglobin 15.2 g/dL (11.7-16.6); Lymphocytes # 3.9 10^3/uL (0.8-4.8); Lymphocytes % 26.9 %; Mean Corpuscular HGB Conc 34.9 g/dL (30.0-36.0); Mean Corpuscular Hemoglobin 30.8 pg (28.0-34.0); Mean Corpuscular Volume 88.4 fl (80-94); Mean Platelet Volume 8.7 fL (7.4-10.4); Monocytes # 1.3 10^3/uL (0.2-0.9); Monocytes % 9.2 %; Neutrophils # 8.33 10^3/uL (1.8-7.7); Neutrophils % 57.9 %; Nucleated Red Blood Cells % 0 %; Platelet Count 418 10^3/cmm (130-400); Red Blood Count 4.93 10^6/uL (4.1-5.3); Red Cell Distribution Width 13.9 % (12.1-15.1); White Blood Count 14.4 10^3/uL (4.0-10.0)
[2021-10-27 13:25] LABS: Acetaminophen < 5.0 ug/mL (10-30); Alanine Aminotransferase 65 U/L (0-41); Albumin Level 3.9 g/dL (3.5-5.2); Alkaline Phosphatase 133 IU/L (40-130); Anion Gap 20.4 (5-19); Aspartate Amino Transferase 59 U/L (0-40); Blood Urea Nitrogen 7 mg/dL (6-20); Calcium 9.1 mg/dL (8.5-10.5); Carbon Dioxide 23 mmol/L (22-29); Chloride 100 mmol/L (98-107); Globulin 4.5 g/dL (1.3-4.6); Glomerular Filtration Rate 145.7 mL/min (90-130); Glucose 108 mg/dL (65-115); Lipase 14 U/L (13-60); Osmolality Calculated 289 mOsm/kg (285-295); Potassium 3.4 mmol/L (3.5-5.1); Salicylate < 0.3 mg/dL (3-10); Sodium 140 mmol/L (136-145); Total Bilirubin 0.2 mg/dL (0.15-1.2); Total Protein 8.4 g/dL (6.6-8.7)
[2021-10-27] MEDS: LORazepam 2 mg Tablet PO ×3 (13:29→20:45)
[2021-10-27 13:54] VITALS: RESP 19
[2021-10-27 14:18] LABS: Amphetamines Screen Urine Negative (Negative); Barbiturates Screen Urine Negative (Negative); Benzodiazepines Screen Urine Negative (Negative); Cocaine Screen Urine Negative (Negative); Opiate Screen Urine Negative (Negative); PCP Screen Urine Negative (Negative); THC Screen Urine Negative (Negative)
[2021-10-27 15:40] VITALS: PULSE 82; RESP 19; O2SAT 96
[2021-10-27 15:56] VITALS: BP 168/95; PULSE 108; RESP 20; TEMP 36.6; O2SAT 96
[2021-10-27] MEDS: LORazepam 2 mg/mL INJ 1 mL IM (16:09)
[2021-10-27] MEDS: ondansetron 4 MG Tablet PO (16:34)
[2021-10-27 17:08] LABS: Alcohol Level < 10 mg/dL (0-10)
[2021-10-27 19:55] VITALS: BP 162/84; PULSE 99; RESP 18; O2SAT 93
[2021-10-27] MEDS: amoxicillin 500 mg Capsule PO (20:45)
[2021-10-27 21:27] VITALS: PULSE 107; RESP 18; O2SAT 96
[2021-10-28 06:00] VITALS: BP 170/95; PULSE 85; RESP 19; O2SAT 92
[2021-10-28] MEDS: multivitamin therapeutic Tablet 1 TAB PO (09:27)
[2021-10-28] MEDS: thiamine 100 mg Tablet PO (09:27)
[2021-10-28] MEDS: amlodipine 5 mg Tablet PO (09:28)
[2021-10-28] MEDS: lisinopril 10 mg Tablet PO (09:28)
[2021-10-28] MEDS: hydroCHLOROthiazide 25 mg Tablet PO (09:28)
[2021-10-28] MEDS: folic acid 1 mg Tablet PO (09:28)
[2021-10-28] MEDS: LORazepam 2 mg Tablet PO ×7 (09:30→23:35)
[2021-10-28] MEDS: amoxicillin 500 mg Capsule PO (09:35)
--- NOTE | 2021-10-28 13:09 | PC.NURSE ---
PRN MED PT GIVEN 5MG ATIVAN PER CIWA PROTOCOL, SCORING 18, WILL CONTINUE TO MONITOR
--- NOTE | 2021-10-28 13:22 | P.NPUHP_ITS ---
Providers/Chief Complaint Admitting Physician: Chinmay Sher MD Chief Complaint: MHE HPI NPU History of Present Illness Roderick Costello is a 46 year old male who presented to the emergency department with the following report: Chief complaint: Psychiatric Symptoms Stated complaint: MHE Time Seen by Provider: 10/27/21 12:19 History of Present Illness: HPI: [46]yo patient w/ hx of depression and emergency room passive suicidal ideation and fear. Patient tells me that he feels hopeless and he feels like he is hopeless and could later today. He does not have any active plan. On arrival, the patient is AAOx3 and cooperative with my evaluation. No focal complaints of chest pain, shortness of breath, palpitations, N/V, focal GI/ complaints. Currently denies HI. No complaints of hallucinations. Onset: acute Duration: ongoing Location: home Severity: severe Associated symptoms: Deny chest pain, dyspnea, nausea, rash, palpitations or vomiting He was admitted to the neuropsychiatric unit for definitive treatment of those issues. He presents today as a fairly poor historian he has been receiving significant Ativan for his withdrawal. But we are able to wean from home is that he had been drinking maybe as much of the fifth day and has recently discontinued drinking because he wants to stop drinking and has been feeling his impending dread that he is going to . We talked about the likelihood that this represents with his. During the time before and after this conversation he was seen on the unit at times acting bizarre clearly attending to internal stimuli or hallucinating it was somewhat similar to his last inpatient hospitalization and an excerpt of that is included below for context. He denies significant changes since then. He remains and his is supposed to visit him later. There were times that there was significant clarity in the conversation other times he would go to the door and pushed on it as he thought he might open and then turned and make strange comments. We discussed that the nurses will be trying to give him benzodiazepines liberally to make sure that he does not descend into delirium tremens. Per his 06/28/2019 [facility] inpatient psychiatric evaluation: History of Present Illness Chief complaint: I got my feelings hurt.? I don't really know why I came here.? I don't how this is Supposed to help me. History of present illness:Roderick Costello is a 44 year old male Who does not feel that he has a mental health problem.? He presented to the emergency room after an episode at home that his feelings hurt.? He did not know where to go.? He came to the hospital.? He made some vague suicidal statements.? He is somewhat offended that they took him seriously and that he is now in a psychiatric unit.? He is irritated that they gave him medication and now tired.? He needs to be here.? He does not feel he needs to have psychiatric care. Roderick is suffering from multiple different mental health issues.? To begin with, he reports that he is drinking 2 gallons of vodka per week.He is prescribed Depakote at the [facility] for his tendency to be explosive and angry.? However he does not take the Depakote because of the fear he has that the Depakote will harm his liver in combination with alcohol.? He sees that the alcohol drinking as a problem but not to the extent that he would be willing to participate in a sobriety program.? He cannot remember when he was last sober for more than a week.He presented to the emergency room with a blood alcohol level =221.? He is not reporting any signs or symptoms of alcohol withdrawal today.He denies a history of seizures, DTs, or alcohol withdrawal. He denies that he is depressed.? He enjoys playing with his grandchildren.? However he also reports that he is persistently dysphoric area he has difficulty sleeping though he does sleep with a CPAP.? He is drinking 2 gallons of vodka per week.? He denies suicidal or homicidal ideation but he definitely did make multiple statements according affidavits in that direction last night.? He is sad over the state of his marital relationship.? He is sad for a great number of reasons.? He feels hopeless and overwhelmed and does not feel that he can make any significant changes in his life.? But again, he states that he is not depressed.? He denies the presence of auditory or visual hallucinations. He is given Depakote by the MA for tendency to be explosive.? He has never had a seizure.? Then again, he doesn't take that medication. Meds NPU Home Medications Medication Instructions Recorded Confirmed Last Taken Type lisinopril 10 mg tablet 10 mg PO DAILY 06/28/19 10/27/21 06/28/19 History amlodipine 5 mg tablet 5 mg PO DAILY 09/18/21 10/27/21 Unknown History cholecalciferol (vitamin D3) 75 75 mcg PO DAILY 09/18/21 10/27/21 Unknown History mcg (3,000 unit) tablet hydrochlorothiazide 25 mg tablet 25 mg PO DAILY 09/18/21 10/27/21 Unknown History multivitamin (Daily Multi-Vitamin) 1 tab PO DAILY 09/18/21 10/27/21 Unknown History amoxicillin 500 mg tablet 500 mg PO BID 10 Days #20 tab 10/19/21 10/27/21 Unknown Rx potassium chloride 20 mEq 10 meq PO DAILY 10/27/21 10/27/21 Unknown History tablet,extended release Allergies Allergy/AdvReac Type Severity Reaction Status Date / Time haloperidol [From Haldol] Allergy Intermediate ADR-Seizure Verified 10/19/21 13:08 doxycycline Allergy Mild ADR-Diarrhe Verified 10/19/21 13:08 a sulfamethoxazole Allergy Mild ADR-Agitate Verified 10/19/21 13:08 [From Bactrim] d trimethoprim [From Bactrim] Allergy Mild ADR-Agitate Verified 10/19/21 13:08 d ciprofloxacin Allergy ADR-Hyperte Verified 10/19/21 13:08 nsion erythromycin base Allergy ADR-Hyperte Verified 10/19/21 13:08 nsion trazodone Allergy ADR-Headach Verified 10/27/21 14:27 e vancomycin Allergy ADR-Hyperte Verified 10/19/21 13:08 nsion antibotics Allergy Intermediate ALGY-Hives Uncoded 10/19/21 13:08 PFSH NPU PFSH: Medical History Dysuria Family History Mother , at age 53 Lung disease Brother No problems noted. Social History Smoking and tobacco status: former smoker Alcohol intake: current Alcohol intake frequency: 0-2 Drinks per Day Marital status: service: Yes Current occupational status: retired History of recent travel: No Mental Status Exam MSE Comments: This is a morbidly obese white male in hospital scrubs with limited grooming and an intermittently adequate eye contact looking older than his stated age He has a full-length basically [employer] croft that he occasiona lly bands at different levels. No abnormal movements except for fluctuating between psychomotor retardation and psychomotor agitation. Intermittently cooperative with exam in mild to moderate distress. Speech was limited and decreased rate and volume and often mumbling. Mood described as I will know, affect odd. Thought process intermittently organized other times disorganized. Thought content: Patient denied suicidal or homicidal ideation, there were no delusions reported or noted, he denied auditory or visual hallucinations but was clearly attending to internal stimuli/hallucinating. Attention and concentration were intermittently intact and memory was unreliable at times but none were formally tested. He is alert and oriented times person place. Insight and judgment are impaired, impulse control is impaired. Vitals/I&O/Wt Last Vital Signs Temp 98 F 10/27/21 15:56 Pulse 85 10/28/21 06:00 Resp 19 H 10/28/21 06:00 BP 170/95 10/28/21 06:00 Pulse Ox 92 10/28/21 06:00 Weight last 48 hrs Weight 161.932 kg Data NPU : 10/27/21 13:00 10/27/21 13:00 A&P Assessment and plan (1) Alcohol use disorder, severe, dependence: Status: Acute (2) Alcohol withdrawal delirium: Status: Acute (3) Depression: Status: Acute Plan This is a 46-year-old white male with alcohol use disorder and current withdrawal presenting with concerns of lethality but lack of clarity due to his withdrawal confusion. 1. Continue current medication. 2. Continue every 15 minute checks for safety. 3. Encourage individual, group and milieu therapies. 4. Encourage sober living treatment after discharge at the highest level of care to which he is willing to commit. 5. Patient on CIWA protocol and should have Ativan liberally. Involuntary Hold Information 96 Hour Hold: 96 Hour Involuntary Admission: No 96 Hour Hold Ending Date: 07/03/19 96 Hour Hold Ending Time: 00:00 Attestations NPU Medical Necessity Statement*: Inpatient hospitalization is medically necessary and the clinically appropriate intervention at this time. We will monitor medication to make changes as indicated. Patient will be in the hospital for over two midnights. Likely length of stay 3 to 5 days. Coding Level of Care Code Acute Full Stack Web Developer for Tevin Roberts Diagnoses Alcohol use disorder, severe, dependence F10.20 Alcohol withdrawal delirium F10.231 Depression F32.A
[2021-10-28 14:00] VITALS: BP 170/95; PULSE 85; RESP 19; TEMP 36.6; O2SAT 92
[2021-10-28] MEDS: OLANZapine 5 mg ODT PO ×2 (14:18→21:09)
--- NOTE | 2021-10-28 16:56 | PC.NURSE ---
PRN MED PT GIVEN 5MG ATIVAN PO, PER [place] [facility]OTOCOL & DR. SCOTT, WILL CONTINUE TO MONITOR.
--- NOTE | 2021-10-28 18:14 | PC.NURSE ---
BEHAVIORS PT HAS RECEIVED SEVERAL DOSES OF ATIVAN PER [facility] PROTOCOL. PT CONTINUES TO SHOW SIGNS OF DELIRIUM. PT SPEAKS TO UNSEEN OTHERS AND POSITIVE FOR AUDITORY AND VISUAL HALLUCINATIONS. DELUSIONAL AT TIMES AND NEEDS STAFF REDIRECTED. CONTINUES TO HAVE SLIGHT TREMORS AND PERSPIRATION. WILL CONTINUE TO FOLLOW PROTOCOL
[2021-10-28 19:39] VITALS: BP 160/114; PULSE 106; RESP 20; TEMP 36.6; O2SAT 93
--- NOTE | 2021-10-28 20:31 | PC.NURSE ---
DURING EVENING ASSESSMENTS PT WAS SWEATING AND ACTIVELY HAVING VISUAL HALLUCINATIONS OF SHADOWS. PT ASK THIS NURSE IF HE WAS ABLE TO LEAVE BECAUSE HE SIGNED HIMSELF IN. THIS NURSE SPOKE WITH PT AND PT AGREED TO STAY AND BE REEVALUATED IN THE AM BY MD. IS AWARE. PT CURRENTLY RESTING IN BED.
[2021-10-28] MEDS: hyDROXYzine 25 mg Capsule 50 MG PO (21:08)
--- NOTE | 2021-10-28 21:27 | PC.NURSE ---
PT REFUSED TO WEAR CPAP TONIGHT DUE TO NO OTHER OPTIONS WITH FACE MASK.
[2021-10-28] MEDS: LORazepam 2 mg/mL INJ 1 mL 4 MG IM (22:39)
--- NOTE | 2021-10-28 22:43 | PC.NURSE ---
Patient wants to leave ama voluntarily. There is no affidavit on the chart. At 2099 the patient was very upset that he couldn't leave. His speech is slurred and doesn't make much sense and he is tearful. He states he needs to get home to his family. Ativan 2mg given around 1999. Patient is allergic to haldol and trazadone and agrees to stay the night if he could just sleep. Patient uses a cpap at home but his has a nasal cannula set up not a mask. He states that the mask on the one provided does not fit and is useless to him. The hospital is not equipped with the type he uses. Zyprexa and Vistaril given for anxiety. Will monitor the patient.
--- NOTE | 2021-10-28 22:47 | PC.NURSE ---
Patient is delusional and hallucinating in his bed picking at things in the air. He states he can not sleep. Call made to Dr Sher who stated to give him Ativan 4mg. Order for Ativan 4mg written. Ativan 4mg IM administered to the right deltoid. Will monitor the patient.
--- NOTE | 2021-10-28 23:37 | PC.NURSE ---
Patient is awake despite the Ativan 4 mg IM. He requested a pill. Patient on assessment was confused, diaphoretic, and had slight tremors. Ativan 2mg po administered. Will continue to monitor the patient.
[2021-10-29] MEDS: ziprasidone 20 mg/mL SDV IM ×2 (00:58→21:26)
--- NOTE | 2021-10-29 00:58 | PC.NURSE ---
Patient is up and awake. He wants to leave. He is standing at the door. When trying to redirect the patient he begins to get more agitated. Call to Dr. Sher as the 6mg of Ativan given are not working. Order received for Geodon IM 20mg bid prn. Geodon 20mg IM given in the left deltoid. Patient was helped to a lying position. Will continue to monitor the patient.
--- NOTE | 2021-10-29 02:27 | PC.NURSE ---
Patient continues to be up and awake. He is currently in the dayroom. He thinks there are people in his room. Vistaril and Zyprexa given for anxiety agitation.
--- NOTE | 2021-10-29 03:48 | PC.NURSE ---
Patient did not receive the last dose of Vistaril and Zyprexa. He fell asleep a few minutes before going to administer. He continues to sleep, snoring. Will continue to monitor.
--- NOTE | 2021-10-29 04:18 | PC.NURSE ---
Patient continues to rest in bed.
[2021-10-29 06:00] VITALS: RESP 18
[2021-10-29] MEDS: OLANZapine 5 mg ODT PO (06:22)
[2021-10-29] MEDS: hyDROXYzine 25 mg Capsule 50 MG PO (06:23)
[2021-10-29] MEDS: amlodipine 5 mg Tablet PO (09:03)
[2021-10-29] MEDS: thiamine 100 mg Tablet PO (09:04)
[2021-10-29] MEDS: folic acid 1 mg Tablet PO (09:04)
[2021-10-29] MEDS: multivitamin therapeutic Tablet 1 TAB PO (09:04)
[2021-10-29] MEDS: lisinopril 10 mg Tablet PO (09:04)
[2021-10-29] MEDS: hydroCHLOROthiazide 25 mg Tablet PO (09:04)
[2021-10-29] MEDS: LORazepam 2 mg Tablet PO (11:42)
[2021-10-29] MEDS: ondansetron 4 MG Tablet PO (11:42)
--- NOTE | 2021-10-29 12:19 | P.NPUPN_ITS ---
Subjective NPU Subjective: Patient presents today sleeping mostly as the benzodiazepines and his active energy and agitation from yesterday seem to have enlarged. He is getting up and eating with meals but is otherwise resting but continues to have signs consistent with alcohol withdrawal. We will continue to collaborate with him on the idea of making sure he is safe from a withdrawal standpoint before we had a conversation about discharge. Less reports of any perceptual disturbances. Mental Status Exam MSE Comments: This is a morbidly obese white male in hospital scrubs with limited grooming and an intermittently adequate eye contact looking older than his stated age? He has a full-length basically [employer] croft that he occasionally bands at different levels.? No abnormal movements except for psychomotor retardation. Mostly cooperative with exam in mild distress.? Speech was limited and decreased rate and volume and often mumbling.? Mood described as okay, affect odd and subdued. Thought process intermittently organized with less disorganization.? Thought content: Patient denied suicidal or homicidal i deation, there were no delusions reported or noted, he denied auditory or visual hallucinations but less attending to internal stimuli/hallucinating.? Attention and concentration were intermittently intact and memory was unreliable at times but none were formally tested.? He is alert and oriented times person place.? Insight and judgment are impaired, impulse control is impaired. Vitals/I&O/Wt Last Vital Signs Temp 97.8 F 10/28/21 19:39 Pulse 106 H 10/28/21 19:39 Resp 18 10/29/21 06:00 BP 160/114 10/28/21 19:39 Pulse Ox 93 10/28/21 19:39 Weight last 48 hrs Weight 158.848 kg Weight 161.932 kg Data NPU : 10/27/21 13:00 10/27/21 13:00 A&P Assessment and plan (1) Depression: Status: Acute (2) Alcohol withdrawal delirium: Status: Acute (3) Alcohol use disorder, severe, dependence: Status: Acute Plan This is a 46-year-old white male with alcohol use disorder and current withdrawal presenting with concerns of lethality but lack of clarity due to his withdrawal confusion. 1.? Continue current medication. 2.? Continue every 15 minute checks for safety. 3.? Encourage individual, group and milieu therapies. 4.? Encourage sober living treatment after discharge at the highest level of care to which he is willing to commit. 5.? Patient on CIWA protocol and should have Ativan liberally. Involuntary Hold Information 96 Hour Hold: 96 Hour Involuntary Admission: No 96 Hour Hold Ending Date: 07/03/19 96 Hour Hold Ending Time: 00:00 Attestations NPU Medical Necessity Statement*: Inpatient hospitalization is medically necessary and the clinically appropriate intervention at this time. We will monitor medication to make changes as indicated. Likely length of stay 2-4 days. Coding Level of Care Code Acute Ed Case Manager for Tevin Shepherdd Diagnoses Depression F32.A Alcohol withdrawal delirium F10.231 Alcohol use disorder, severe, dependence F10.20
[2021-10-29 14:00] VITALS: BP 189/80; PULSE 98; RESP 20; TEMP 36.7; O2SAT 94
--- NOTE | 2021-10-29 14:12 | PC.NURSE ---
CRIMINAL ATTORNEY ALERTED THIS NURSE THAT 1400 VS SHOWED PTS O2 SATS AT 72% WHILE SLEEPING FLAT ON BACK IN BED, WOKE PT AND SAT HIM UP ON SIDE OF BED, O2 SATS QUICKLY WENT FROM 73% TO 92%. PT VS 189/80, HR 98, RR 20, TEMP 98.0. NO S/S OF RESP DISTRESS. PT IS GROGGY AND SEDATED FROM PO MEDS GIVEN PER PROTOCOL FOR SIWA SCALE AND LAST NIGHTS AGITATION. PT HOB RAISED TO 30 DEGREES AND PT 02 SAT IS 91%. DR FRANKLIN INFORMED
[2021-10-29 19:59] VITALS: RESP 20
--- NOTE | 2021-10-29 21:32 | PC.NURSE ---
C-pap placed on pt at this time, using XL nose piece. pt stated it feels perfect . glass of lemonaid given as pt requested. pt inquired about missing the Dr and the chance to go home . RN explained to the pt that because of all the medication he was given prior to arriving on this unit, pt has been asleep most of this day. That pt has needed to be monitored closely and that the Dr would be able to better assess him tomorrow. RN administered medication to help with pt's anxiety.
[2021-10-30 06:00] VITALS: BP 147/94; PULSE 102; RESP 20; TEMP 36.8; O2SAT 93
[2021-10-30] MEDS: lisinopril 10 mg Tablet PO (08:03)
[2021-10-30] MEDS: folic acid 1 mg Tablet PO (08:03)
[2021-10-30] MEDS: multivitamin therapeutic Tablet 1 TAB PO (08:03)
[2021-10-30] MEDS: thiamine 100 mg Tablet PO (08:03)
[2021-10-30] MEDS: hydroCHLOROthiazide 25 mg Tablet PO (08:04)
[2021-10-30] MEDS: amlodipine 5 mg Tablet PO (08:04)
[2021-10-30 14:00] VITALS: BP 139/88; PULSE 87; RESP 18; TEMP 36.6; O2SAT 98
[2021-10-30] MEDS: OLANZapine 5 mg ODT PO (17:01)
--- NOTE | 2021-10-30 17:02 | PC.NURSE ---
PRN MEDICATIONS PT TO NURSES STATION, REQUEST SOMETHING FOR INCREASED ANXIETY. ZYDIS 5 MG GIVEN ORDERED.
--- NOTE | 2021-10-30 17:17 | P.NPUPN_ITS ---
Subjective NPU Subjective: Patient presents today having just visited with his who reports that he was really struggling a few days ago. We discussed delirium and specifically delirium tremens and the dangers of alcohol withdrawal. With his present he reported his plan to discontinue drinking altogether now is happy that he is on this side of the discontinuation. says that he has talked about cutting back or other small incremental changes but this is the first time that abstinence has been on the table. She reports he is very hopeful that he follows through on that. Discussed the likelihood of discharge in the morning. Mental Status Exam 2 MSE Comments: This is a morbidly obese white male in hospital scrubs with limited grooming and an intermittently adequate eye contact looking older than his stated age? He has a full-length basically [employer] croft that he occasionally bands at different levels or jax No abnormal movements except for mild psychomotor retardation.? Mostly cooperative with exam in no acute distress.? Speech was more spontaneous and decreased rate and volume with less mumbling.? Mood described as feeling better, affect less odd and subdued.? Thought process more organized with no clear disorganization.? Thought content: Patient denied suicidal or homicidal ideation, there were no delusions reported or noted, he denied auditory or visual hallucinations and did not appear to be attending to internal stimuli/hallucinating.? Attention and concentration were intermittently intact and memory was unreliable at times but none were formally tested.? He is alert and oriented times person place.? Insight and judgment are improving, impulse control is limited. Vitals/I&O/Wt Last Vital Signs Temp 98 F 10/30/21 14:00 Pulse 87 10/30/21 14:00 Resp 18 10/30/21 14:00 BP 139/88 10/30/21 14:00 Pulse Ox 98 10/30/21 14:00 Weight last 48 hrs Weight 158.848 kg Data NPU : 10/27/21 13:00 10/27/21 13:00 A&P Assessment and plan (1) Depression: Status: Acute (2) Alcohol withdrawal delirium: Status: Acute (3) Alcohol use disorder, severe, dependence: Status: Acute Plan This is a 46-year-old white male with alcohol use disorder and current withdrawal presenting with concerns of lethality but lack of clarity due to his withdrawal confusion. 1.? Continue current medication. 2.? Continue every 15 minute checks for safety. 3.? Encourage individual, group and milieu therapies. 4.? Encourage sober living treatment after discharge at the highest level of care to which he is willing to commit. 5.? Patient on CIWA protocol and requiring much less medication. 6. Likely plan for discharge tomorrow. Involuntary Hold Information 96 Hour Hold: 96 Hour Involuntary Admission: No 96 Hour Hold Ending Date: 07/03/19 96 Hour Hold Ending Time: 00:00 Attestations NPU Medical Necessity Statement*: Inpatient hospitalization is medically necessary and the clinically appropriate intervention at this time. We will monitor medication to make changes as indicated.? Likely length of stay 1-3 days. Coding Level of Care Code Acute Manager Of Application Development for Tevin Fwd Diagnoses Depression F32.A Alcohol withdrawal delirium F10.231 Alcohol use disorder, severe, dependence F10.20
[2021-10-30 20:00] VITALS: PULSE 92; RESP 18; O2SAT 95
[2021-10-30 21:02] VITALS: BP 163/85; PULSE 92; RESP 18; TEMP 36.6; O2SAT 94
[2021-10-31 06:00] VITALS: BP 147/74; PULSE 81; RESP 20; TEMP 36.6; O2SAT 94
[2021-10-31] MEDS: thiamine 100 mg Tablet PO (08:20)
[2021-10-31] MEDS: lisinopril 10 mg Tablet PO (08:20)
[2021-10-31] MEDS: hydroCHLOROthiazide 25 mg Tablet PO (08:20)
[2021-10-31] MEDS: folic acid 1 mg Tablet PO (08:20)
[2021-10-31] MEDS: amlodipine 5 mg Tablet PO (08:21)
[2021-10-31] MEDS: multivitamin therapeutic Tablet 1 TAB PO (08:21)
--- NOTE | 2021-10-31 11:33 | P.NPUDS_ITS ---
Diagnoses at Discharge Discharge Diagnosis (1) Depression: Status: Acute (2) Alcohol withdrawal delirium: Status: Resolved (3) Alcohol use disorder, severe, dependence: Status: Acute Reason for Visit Reason for Visit: MHE Brief History: History of Present Illness Roderick Costello is a 46 year old male who presented to the emergency department with the following report: Chief complaint: Psychiatric Symptoms Stated complaint: MHE Time Seen by Provider: 10/27/21 12:19 History of Present Illness:?? HPI: [46]yo patient w/ hx of depression and emergency room passive suicidal ideation and fear.? Patient tells me that he feels hopeless and he feels like he is hopeless and could later today.? He does not have any active plan. On arrival, the patient is AAOx3 and cooperative with my evaluation. No focal complaints of chest pain, shortness of breath, palpitations, N/V, focal GI/ complaints. Currently denies HI. No complaints of hallucinations. Onset: acute Duration: ongoing Location: home Severity: severe Associated symptoms: Deny chest pain, dyspnea, nausea, rash, palpitations or vomiting He was admitted to the neuropsychiatric unit for definitive treatment of those issues.? He presents today as a fairly poor historian he has been receiving significant Ativan for his withdrawal.? But we are able to wean from home is that he had been drinking maybe as much of the fifth day and has recently discontinued drinking because he wants to stop drinking and has been feeling his impending dread that he is going to .? We talked about the likelihood that this represents with his.? During the time before and after this conversation he was seen on the unit at times acting bizarre clearly attending to internal stimuli or hallucinating it was somewhat similar to his last inpatient hospitalization and an excerpt of that is included below for context.? He denies significant changes since then.? He remains and his is supposed to visit him later.? There were times that there was significant clarity in the conversation other times he would go to the door and pushed on it as he thought he might open and then turned and make strange comments.? We discussed that the nurses will be trying to give him benzodiazepines liberally to make sure that he does not descend into delirium tremens. Per his 06/28/2019 [facility] [place] inpatient psychiatric evaluation: History of Present Illness Chief complaint: I got my feelings hurt.? I don't really know why I came here.? I don't how this is Supposed to help me. History of present illness:Roderick Costello is a 44 year old male Who does not feel that he has a mental health problem.? He presented to the emergency room after an episode at home that his feelings hurt.? He did not know where to go.? He came to the hospital.? He made some vague suicidal statements.? He is somewhat offended that they took him seriously and that he is now in a psychiatric unit.? He is irritated that they gave him medication and now tired.? He needs to be here.? He does not feel he needs to have psychiatric care. Roderick is suffering from multiple different mental health issues.? To begin with, he reports that he is drinking 2 gallons of vodka per week.He is prescribed Depakote at the [place] for his tendency to be explosive and angry.? However he does not take the Depakote because of the fear he has that the Depakote will harm his liver in combination with alcohol.? He sees that the alcohol drinking as a problem but not to the extent that he would be willing to participate in a sobriety program.? He cannot remember when he was last sober for more than a week.He presented to the emergency room with a blood alcohol level =221.? He is not reporting any signs or symptoms of alcohol withdrawal today.He denies a history of seizures, DTs, or alcohol withdrawal. He denies that he is depressed.? He enjoys playing with his grandchildren.? However he also reports that he is persistently dysphoric area he has difficulty sleeping though he does sleep with a CPAP.? He is drinking 2 gallons of vodka per week.? He denies suicidal or homicidal ideation but he definitely did make multiple statements according affidavits in that direction last night.? He is sad over the state of his marital relationship.? He is sad for a great number of reasons.? He feels hopeless and overwhelmed and does not feel that he can make any significant changes in his life.? But again, he states that he is not depressed.? He denies the presence of auditory or visual hallucinations. He is given Depakote by the [place] for tendency to be explosive.? He has never had a seizure.? Then again, he doesn't take that medication. Hospital Course Hospital Course He slowly acclimated to the individual, group and milieu therapies provided. He was placed on the CIWA protocol which was aggressively followed due to his delirium and hallucinations from his alcohol withdrawal. He was not interested in initiating any medications for his mood as he endorsed that he felt confident that once he maintain his sobriety the issues around his mood would resolve. He had marked improvement during the hospitalization with resolution of his wit hdrawal delirium. Worked with the treatment team and his for discharge planning and he was willing to do some community sober living options like AA but he was not willing to do any more intensive drug or alcohol treatment. He was able to contract for safety outside the hospital prior to discharge. During the hospitalization, patient had routine laboratory studies which were within normal limits except for few outliers. Additionally there was a general medical evaluation which was also within normal limits and revealed no new acute processes. Discharge Summary: At the time of discharge, he denied psychosis or lethality. Mood and anxiety were well managed. Patient endorsed a plan to avoid all drugs of abuse and follow-up with the aftercare recommendations of the treatment team. Patient was evaluated and deemed to be absent credible lethality, and had achieved the maximum benefit from an inpatient hospitalization, so was discharged. Involuntary Hold Information 96 Hour Hold: 96 Hour Involuntary Admission: No 96 Hour Hold Ending Date: 07/03/19 96 Hour Hold Ending Time: 00:00 Mental Status Exam MSE Comments: This is a morbidly obese white male in hospital scrubs with limited grooming and adequate eye contact looking older than his stated age? He has a full-length basically [employer] croft that he occasionally bands at diffe rent levels or jax No abnormal movements except for mild psychomotor retardation.?Cooperative with exam in no acute distress.? Speech was more spontaneous and decreased rate and volume with less mumbling.? Mood described as better, affect congruent.? Thought process more organized .? Thought content: Patient denied suicidal or homicidal ideation, there were no delusions reported or noted, he denied auditory or visual hallucinations and did not appear to be attending to internal stimuli/hallucinating.? Attention and concentration were intermittently intact and memory was unreliable at times but none were formally tested.? He is alert and oriented times person place.? Insight and judgment are improving, impulse control is limited. Discharge Data Studies Completed and Pending: Laboratory Results WBC 14.4 10^3/uL (4.0 -10.0) H 10/27/21 13:00 RBC 4.93 10^6/uL (4.1 -5.3) 10/27/21 13:00 Hgb 15.2 g/dL (11.7-1 6.6) 10/27/21 13:00 Hct 43.6 % (42.0-52.0 ) 10/27/21 13:00 MCV 88.4 fl (80-94) 10/27/21 13:00 MCH 30.8 pg (28.0-34. 0) 10/27/21 13:00 MCHC 34.9 g/dL (30.0-3 6.0) 10/27/21 13:00 RDW 13.9 % (12.1-15.1 ) 10/27/21 13:00 Plt Count 418 10^3/cmm (130 -400) H 10/27/21 13:00 MPV 8.7 fL (7.4-10.4) 10/27/21 13:00 Neut % (Auto) 57.9 % 10/27/21 13:00 Lymph % (Auto) 26.9 % 10/27/21 13:00 Centre % (Auto) 9.2 % 10/27/21 13:00 Eos % (Auto) 1.4 % 10/27/21 13:00 Baso % (Auto) 1.0 % 10/27/21 13:00 Neut # (Auto) 8.33 10^3/uL (1.8 -7.7) H 10/27/21 13:00 Lymph # (Auto) 3.9 10^3/uL (0.8- 4.8) 10/27/21 13:00 Centre # (Auto) 1.3 10^3/uL (0.2- 0.9) H 10/27/21 13:00 Eos # (Auto) 0.2 10^3/uL (0.0- 0.8) 10/27/21 13:00 Baso # (Auto) 0.1 10^3/uL (0.0- 0.1) 10/27/21 13:00 Nucleated RBC % (a uto) 0 % 10/27/21 13:00 Nucleated RBCs # 0.0 /100WBC 10/27/21 13:00 Sodium 140 mmol/L (136-1 45) 10/27/21 13:00 Potassium 3.4 mmol/L (3.5-5 .1) L 10/27/21 13:00 Chloride 100 mmol/L (98-10 7) 10/27/21 13:00 Carbon Dioxide 23 mmol/L (22-29) 10/27/21 13:00 Anion Gap 20.4 (5-19) H 10/27/21 13:00 BUN 7 mg/dL (6-20) 10/27/21 13:00 Creatinine 0.6 mg/dL (0.7-1. 2) L 10/27/21 13:00 GFR Calculation 145.7 mL/min (90- 130) H 10/27/21 13:00 Glucose 108 mg/dL (65-115 ) 10/27/21 13:00 Calculated Osmolal ity 289 mOsm/kg (285- 295) 10/27/21 13:00 Calcium 9.1 mg/dL (8.5-10 .5) 10/27/21 13:00 Total Bilirubin 0.2 mg/dL (0.15-1 .2) 10/27/21 13:00 AST 59 U/L (0-40) H 10/27/21 13:00 ALT 65 U/L (0-41) H 10/27/21 13:00 Alkaline Phosphata se 133 IU/L (40-130) H 10/27/21 13:00 Total Protein 8.4 g/dL (6.6-8.7 ) 10/27/21 13:00 Albumin 3.9 g/dL (3.5-5.2 ) 10/27/21 13:00 Globulin 4.5 g/dL (1.3-4.6 ) 10/27/21 13:00 Lipase 14 U/L (13-60) 10/27/21 13:00 Salicylates < 0.3 mg/dL (3-10 ) L 10/27/21 13:00 Urine Opiates Scre en Negative ng/mL (N egative) 10/27/21 13:00 Acetaminophen < 5.0 ug/mL (10-3 0) L 10/27/21 13:00 Ur Barbiturates Sc reen Negative ng/mL (N egative) 10/27/21 13:00 Ur Phencyclidine S crn Negative ng/mL (N egative) 10/27/21 13:00 Ur Amphetamines Sc reen Negative ng/mL (N egative) 10/27/21 13:00 U Benzodiazepines Scrn Negative ng/mL (N egative) 10/27/21 13:00 Urine Cocaine Scre en Negative ng/mL (N egative) 10/27/21 13:00 U Marijuana (THC) Screen Negative ng/mL (N egative) 10/27/21 13:00 Ethyl Alcohol < 10 mg/dL (0-10) 10/27/21 16:15 Vitals: Last Vital Signs Temp 97.8 F 10/31/21 06:00 Pulse 81 10/31/21 06:00 Resp 20 H 10/31/21 06:00 BP 147/74 10/31/21 06:00 Pulse Ox 94 10/31/21 06:00 Discharge Plan Discharge Patient Disposition: Home Condition: Stable Prescriptions: New Vitamin B-1 (mononitrate) 100 mg Tablet 100 mg PO DAILY 30 Days Qty: 30 1RF Continued multivitamin [Daily Multi-Vitamin] Tablet 1 tab PO DAILY 0RF amlodipine 5 mg tablet 5 mg PO DAILY 0RF hydrochlorothiazide 25 mg tablet 25 mg PO DAILY 0RF cholecalciferol (vitamin D3) 75 mcg (3,000 unit) tablet 75 mcg PO DAILY 0RF lisinopril 10 mg Tablet 10 mg PO DAILY 0RF potassium chloride 20 mEq Tablet Extended Release 10 meq PO DAILY 0RF Discontinued amoxicillin 500 mg tablet 500 mg PO BID 10 Days Qty: 20 0RF Discharge Orders: Discharge Order (Routine); Ordered 10/31/21 Ordered By: Chinmay Sher Referrals: AA Meetings [facility] [Other] (Saturday Closed; Saturday 6:30pm: Women; Saturday 7pm: Open Book Study; 12pm: Open Discussion; Saturday 7pm Open Discussion; Saturday 12pm: Closed Discussion; Saturday 12:30pm: Open Discussion) Discharge Diet: Regular Discharge Activity: Resume usual activity Patient Instructions: Alcohol Abuse, Alcohol Withdrawal, Depression, Dysuria - Male, Opioid Safety Discharge Attestations NPU Time Spent in Discharge Care*: less than 30 min Specific Discharge Activities: Specific discharge activities: educating p atient, discussing with bilingual patient support caseworker/social workers/dc planners, documenting/other paperwork and evaluating patient/reviewing data Coding Level of Care Code Acute Chg FW DC note Diagnoses Depression F32.A Alcohol withdrawal delirium F10.231 Alcohol use disorder, severe, dependence F10.20
[2021-10-31 11:46] VITALS: BP 147/74; PULSE 81; RESP 20; TEMP 36.6; O2SAT 94
--- NOTE | 2021-10-31 11:50 | DCPLANNER ---
IMM completed with pt 10/31/21 @ 1010. Pt was given a copy of rights and he stated he understood his rights.
== END 2021-10-31 11:56 | disposition home or self-care (01) | DRG 897 ==
LOC: ER 12:42 → NP 15:10
PROVIDERS: Admitting Provider Psychiatry & Neurology Psychiatry; Emergency Provider Emergency Medicine; Visit Provider Psychiatry & Neurology Psychiatry
DX: F10.231 Alcohol dependence with withdrawal delirium (principal); F10.20 Alcohol dependence, uncomplicated; F32.A Depression, unspecified
CPT/HCPCS: 80053; 80306; 80307; 83690; 85025; 96372; 97150; 97165; 99285; J2060; J3486; Q0162

== ENCOUNTER → 2021-12-26 13:09 | Outpatient (BNVA) | payer MEDICARE, OTHER, SELFPAY | PROVIDERS: Visit Provider Urology | DX: N39.9 Disorder of urinary system, unspecified (principal); N41.9 Inflammatory disease of prostate, unspecified; R39.9 Unspecified symptoms and signs involving the genitourinary system | CPT/HCPCS: 81003; 99213 ==

== ENCOUNTER → 2022-03-15 14:21 | Outpatient (BNVA) | payer OTHER, SELFPAY | PROVIDERS: PCP Nurse Practitioner; Visit Provider Surgery | DX: K42.9 Umbilical hernia without obstruction or gangrene (principal) | CPT/HCPCS: 99203 ==

== ENCOUNTER → 2023-08-14 08:14 | Outpatient (BNVA) | payer OTHER, SELFPAY | PROVIDERS: PCP Nurse Practitioner; Referring Provider Nurse Practitioner; Visit Provider Surgery | DX: Z12.11 Encounter for screening for malignant neoplasm of colon (principal) | CPT/HCPCS: 99203; 99214 ==

== ENCOUNTER → 2023-09-06 12:35 | Outpatient (BNVA) | payer OTHER, SELFPAY | PROVIDERS: PCP Nurse Practitioner; Visit Provider Registered Nurse Neonatal Intensive Care | DX: J02.9 Acute pharyngitis, unspecified (principal) | CPT/HCPCS: 87880 ==

== ENCOUNTER 2023-10-15 20:00 | Outpatient (CLI) | payer MEDICARE, OTHER, SELFPAY | END 2023-10-15 20:01 | disposition home or self-care (01) | LOC: SLEEP 10-16 06:25 | PROVIDERS: PCP Nurse Practitioner; Visit Provider Nurse Practitioner | DX: G47.30 Sleep apnea, unspecified (principal) | CPT/HCPCS: 95810 ==

== ENCOUNTER 2023-12-26 06:35 | Day surgery (SDC) | payer OTHER, SELFPAY ==
--- NOTE | 2023-12-26 05:25 | W.PM.OPSFHP ---
Same Day Surgery H&P Indication for Procedure/HPI DATE OF PROCEDURE: December 26, 2023 CHIEF COMPLAINT/INDICATIONFOR SURGICAL PROCEDURE: need for screening colonoscopy PREOP DIAGNOSIS: need for screening colonoscopy PLANNED PROCEDURE: Operation Date: 12/26/23 07:40 Proposed Procedures p Colonoscopy 36878, G0121, Z12.11(Not Applicable) - Guanaco Carreon MD Medications/Allergies* Home Medications Medication Instructions Recorded Confirmed Type cholecalciferol (vitamin D3) 75 75 mcg PO DAILY 09/18/21 12/24/23 History mcg (3,000 unit) tablet multivitamin (Daily Multi-Vitamin 1 tab PO DAILY 09/18/21 12/24/23 History tablet) cetirizine 10 mg tablet (Zyrtec) 10 mg PO DAILY PRN allergies 08/14/23 12/24/23 History tamsulosin 0.4 mg capsule (Flomax) 0.4 mg PO DAILY 08/14/23 12/24/23 History Allergies/Adverse Reactions Allergy/AdvReac Type Severity Reaction Status Date / Time haloperidol [From Haldol] Allergy Intermediate ADR-Seizure Verified 12/24/23 13:52 doxycycline Allergy Mild ADR-Diarrhe Verified 12/24/23 13:52 a sulfamethoxazole Allergy Mild ADR-Agitate Verified 12/24/23 13:52 [From Bactrim] d trimethoprim [From Bactrim] Allergy Mild ADR-Agitate Verified 12/24/23 13:52 d ciprofloxacin Allergy ADR-Hyperte Verified 12/24/23 13:52 nsion erythromycin base Allergy ADR-Hyperte Verified 12/24/23 13:52 nsion trazodone Allergy ADR-Headach Verified 12/24/23 13:52 e vancomycin Allergy ADR-Hyperte Verified 12/24/23 13:52 nsion antibotics Allergy Intermediate ALGY-Hives Uncoded 12/24/23 13:52 Pertinent History/Comorbid Conditions* Medical History (Updated 03/16/22 @ 15:12 by Anil Love MD) Dysuria Surgical History (Updated 08/12/22 @ 14:17 by Vivien Rascon DO) History of cholecystectomy Hx of tracheostomy 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
[2023-12-26 06:45] VITALS: BP 151/87; PULSE 44; RESP 18; TEMP 36.3; O2SAT 99; BMI 25.7
[2023-12-26] MEDS: sodium chloride 0.9% 1,000 ML 30 ML IV (06:55)
--- NOTE | 2023-12-26 07:06 | P.ANESASSM_ITS ---
Pre-Anesthetic Assessment Height/Weight: Height 1.85 m Weight 88.451 kg Temp Pulse Resp BP Pulse Ox O2 Del Method 97.4 F L 44 L 18 151/87 99 Room Air 12/26/23 06:45 12/26/23 06:45 12/26/23 06:45 12/26/23 06:45 12/26/23 06:45 12/26/23 06:45 Preop Diagnosis: need for screening colonoscopy Operation Date: 12/26/23 07:40 Proposed Procedures p Colonoscopy 84760, G0121, Z12.11(Not Applicable) - Guanaco Carreon MD Familial anesthetic complications: none Was Beta Nehemias taken within 24 hours: N/A Was Clonidine taken within 24 hours: N/A Last intake: Intake Last Liquid Date 12/25/23 Last Liquid Time 22:00 Last Solid Date 12/24/23 Last Solid Time 19:30 Social No alcohol (history) and No tobacco Exam alert, oriented x 3, clear to auscultation bilaterally and regular rate & rhythm Airway Submandibular: within normal limits Cervical ROM: within normal limits Mallampati: Class II Dentition: full Comments: Comments: previous trach. no issues since Pulmonary None reported CV/HEM None reported None reported Hepatic None reported GI None reported Metabolic None reported Musc/skel None reported Neuropsych Anxiety, Bipolar and Depression history of all but not on meds or experiencing problems now. Anesthetic Plan ASA status: 2 Anesthesia: MAC Risk of > 500 ml blood loss (7ml/kg in children): No Medications/Allergies Home Medications Medication Instructions Recorded Confirmed Last Taken Type cholecalciferol (vitamin D3) 75 75 mcg PO DAILY 09/18/21 12/24/23 12/25/23 History mcg (3,000 unit) tablet multivitamin (Daily Multi-Vitamin 1 tab PO DAILY 09/18/21 12/24/23 12/25/23 History tablet) cetirizine 10 mg tablet (Zyrtec) 10 mg PO DAILY PRN allergies 08/14/23 12/24/23 12/25/23 History tamsulosin 0.4 mg capsule (Flomax) 0.4 mg PO DAILY 08/14/23 12/24/23 12/25/23 History Allergies Allergy/AdvReac Type Severity Reaction Status Date / Time haloperidol [From Haldol] Allergy Intermediate ADR-Seizure Verified 12/24/23 13:52 doxycycline Allergy Mild ADR-Diarrhe Verified 12/24/23 13:52 a sulfamethoxazole Allergy Mild ADR-Agitate Verified 12/24/23 13:52 [From Bactrim] d trimethoprim [From Bactrim] Allergy Mild ADR-Agitate Verified 12/24/23 13:52 d ciprofloxacin Allergy ADR-Hyperte Verified 12/24/23 13:52 nsion erythromycin base Allergy ADR-Hyperte Verified 12/24/23 13:52 nsion trazodone Allergy ADR-Headach Verified 12/24/23 13:52 e vancomycin Allergy ADR-Hyperte Verified 12/24/23 13:52 nsion antibotics Allergy Intermediate ALGY-Hives Uncoded 12/24/23 13:52 [facility] Anesthesia Medical History Dysuria Surgical History History of cholecystectomy Hx of tracheostomy 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 Social History (System 08/14/23 @ 12:38 by Jyotsna Abad) Smoking and tobacco/nicotine status: never used tobacco/nicotine Alcohol intake: former Marital status: service: Yes Current occupational status: retired Data Anesthesia Cardiac Studies: No Data to Display
[2023-12-26 08:33] VITALS: BP 121/65; PULSE 48; RESP 12; TEMP 36.1; O2SAT 100
[2023-12-26 08:40] VITALS: BP 100/80; PULSE 57; RESP 18; O2SAT 100
[2023-12-26 08:54] VITALS: BP 126/88; PULSE 45; RESP 18; O2SAT 100
--- NOTE | 2023-12-26 09:10 | ANE.PACU2 ---
Inpatient post-anesthesia follow up: Airway intact: Yes Vital signs: Temperature 97.0 F Pulse Rate 45 Respiratory Rate 18 Blood Pressure 126/88 Pulse Oximetry 100 Oxygen Delivery Me thod Room Air Oxygen Flow Rate Fraction of Inspir ed Oxygen Hydration adequate: Yes Nausea and vomiting: No Pain level: 1 Mental status: Baseline
== END 2023-12-26 09:10 | disposition home or self-care (01) ==
PROVIDERS: PCP Nurse Practitioner; Visit Provider Surgery
PROC: 0DJD8ZZ Inspection of Lower Intestinal Tract, Via Natural or Artificial Opening Endoscopic (ICD-10-PCS; CPT 45378; principal; 2023-12-26 07:40)
DX: Z12.11 Encounter for screening for malignant neoplasm of colon (principal); K64.8 Other hemorrhoids
CPT/HCPCS: 45378; J2704; J7030

== ENCOUNTER → 2024-03-25 08:42 | Outpatient (BNVA) | payer OTHER, SELFPAY | PROVIDERS: PCP Nurse Practitioner; Visit Provider Surgery | DX: Z09 Encounter for follow-up examination after completed treatment for conditions other than malignant neoplasm (principal); R03.0 Elevated blood-pressure reading, without diagnosis of hypertension | CPT/HCPCS: 99213 ==